=== PATIENT | female | born 1960 | race Caucasian/White ===

== ENCOUNTER → 2019-01-18 | Outpatient (CLI) | payer BC, OTHER ==
[~2019-01-18] MED LIST: ASPI-1471 PO; AZEL205.; METH4TAB66 PO; OLO2ODPT OU; [UNRECOGNIZED DRUG - OTHER]
== END ==
LOC: AUD 09:00
PROVIDERS: ATTEND Otolaryngology
DX: H91.90 Unspecified hearing loss, unspecified ear (principal)
CPT/HCPCS: 92557; 92570